=== PATIENT | female | born 2000 | race African-American/Black ===

== ENCOUNTER 2022-05-12 12:02 | Emergency (ER) | payer MEDICAID, OTHER ==
[~2022-05-12] VITALS: Ht 162.6 cm; Wt 90.0 kg
[2022-05-12 12:07] VITALS: BP 138/90
[2022-05-12] MEDS ORDERED: MAGNESIUM/ALUMINUM HYDROXIDE/SIMETHICONE 30ML UDC PO ONE (13:15)
[2022-05-12] MEDS ORDERED: ASPIRIN 81MG TABLET PO ONE (13:15)
[2022-05-12 14:08] LABS: HEMATOCRIT. 41.8 % (36.0-48.0); HEMOGLOBIN. 14.2 g/dL (12.0-16.0); MEAN CORPUSCULAR HEMOGLOBIN 30.5 pg (28.0-32.0); MEAN CORPUSCULAR VOLUME 89.9 fL (81.0-99.0); MEAN PLATELET VOLUME 10.4 fl (7.4-10.4); PLATELET 248 x1000/uL (130-400); RED BLOOD CELL COUNT 4.65 mill/uL (4.2-5.4)
[2022-05-12 14:12] LABS: CHLORIDE 109 mEq/L (98-107)
[2022-05-12 14:24] LABS: BASOPHILS % 0.5 % (0.0-2.0); EOSINOPHILS % 0.5 % (0.0-5.0); LYMPHOCYTES % 29.2 % (20.0-50.0); MONOCYTES % 5.1 % (2.0-8.0); NEUTROPHILS % 64.7 % (40.0-76.0)
[2022-05-12] MEDS ORDERED: FAMO-135 PO (16:18)
== END 2022-05-12 16:52 | disposition home or self-care (01) ==
LOC: ER 12:02
DX: R07.89 Other chest pain (principal); F12.10 Cannabis abuse, uncomplicated
CPT/HCPCS: 36415; 71045; 80053; 83880; 84484; 85025; 85379; 93005; 99285; Z7610